=== PATIENT | male | born 1940 | race Caucasian/White ===

== ENCOUNTER 2021-11-22 06:13 | Day surgery (SDC) | payer MEDICARE ==
[~2021-11-22] VITALS: Ht 188 cm; Wt 100.2 kg
[~2021-11-22 06:13] MED LIST: Aspir 8181 MG PO; Omeprazole20 M1; SULI150 PO
[2021-11-22] MEDS ORDERED: DDAVP0.1 M1 PO (06:35)
--- NOTE | 2021-11-22 06:45 | NUR ---
11/22/21 0645 Emeka Johnson CALL LIGHT WITHIN REACH. TETRACAINE IN THE LEFT EYE AT 0640 PLEDGETT AT 0642
== END 2021-11-22 08:24 | disposition home or self-care (01) ==
LOC: ORSCSDS 06:13
PROVIDERS: Ophthalmology
PROC: 08RK3JZ Replacement of Left Lens with Synthetic Substitute, Percutaneous Approach (ICD-10-PCS; principal; 2021-11-22 07:30)
DX: H25.13 Age-related nuclear cataract, bilateral (principal); H52.202 Unspecified astigmatism, left eye; J44.9 Chronic obstructive pulmonary disease, unspecified; Z87.891 Personal history of nicotine dependence; Z79.82 Long term (current) use of aspirin; Z79.899 Other long term (current) drug therapy
CPT/HCPCS: J2001; J2250; J3010; J3301; J7040; V2632

== ENCOUNTER 2021-12-08 06:12 | Day surgery (SDC) | payer MEDICARE ==
[~2021-12-08] VITALS: Ht 193 cm; Wt 98.4 kg
[~2021-12-08 06:12] MED LIST changes: +DDAVP0.1 M1 PO
--- NOTE | 2021-12-08 06:31 | NUR ---
12/08/21 0631 Emeka Johnson CALL LIGHT WITHIN REACH. TETRACAINE IN THE RIGHT EYE AT 0631 AND PLEDGETT AT 0635
== END 2021-12-08 08:09 | disposition home or self-care (01) ==
LOC: ORSCSDS 06:12
PROVIDERS: Ophthalmology
PROC: 08RJ3JZ Replacement of Right Lens with Synthetic Substitute, Percutaneous Approach (ICD-10-PCS; principal; 2021-12-08 07:30)
DX: H25.11 Age-related nuclear cataract, right eye (principal); Z96.1 Presence of intraocular lens; K21.9 Gastro-esophageal reflux disease without esophagitis; I10 Essential (primary) hypertension; J44.9 Chronic obstructive pulmonary disease, unspecified; Z79.82 Long term (current) use of aspirin; Z79.899 Other long term (current) drug therapy
CPT/HCPCS: A9270; J2001; J2250; J3010; J3301; J7040; V2632

== ENCOUNTER 2022-06-07 12:55 | Emergency (ER) | payer MEDICARE ==
[~2022-06-07] VITALS: Ht 193 cm; Wt 90.7 kg
[~2022-06-07 12:55] MED LIST changes: +ATOR40TA PO; +Acetaminophen650 M1 PO; +CALCIUM CARBON500 M1 PO; +CLOP75 PO; -DDAVP0.1 M1 PO; +DESMOPRESSIN A0.2 M1 PO; +Hair, Skin & N1 EACH PO; +METO25ER PO; +NUBEQA300 MG PO; +OMEP20ER PO; +ORGOVYX120 MG PO; -Omeprazole20 M1; +Sulindac200 MG PO; +Vitamin D1000 UNI1 PO
[2022-06-07] MEDS ORDERED: Percocet 5-3251 EACH PO ×3 (14:35→14:41)
[2022-06-07] MEDS ORDERED: CYCL10 PO (14:35)
== END 2022-06-07 15:02 | disposition home or self-care (01) ==
LOC: ER 12:55
DX: M54.42 Lumbago with sciatica, left side (principal); M16.12 Unilateral primary osteoarthritis, left hip; C61 Malignant neoplasm of prostate; Z79.899 Other long term (current) drug therapy; Z87.891 Personal history of nicotine dependence
CPT/HCPCS: 73502; 96372; 99283-25; J1885

== ENCOUNTER 2022-08-07 09:31 | Emergency (ER) | payer MEDICARE ==
[~2022-08-07] VITALS: Ht 190.5 cm; Wt 95.2 kg
[~2022-08-07 09:31] MED LIST changes: +CYCL10 PO; +Percocet 5-3251 EACH PO
[2022-08-07 10:57] LABS: BASOPHILS ABSOLUTE AUTO 0.04 K/mm3 (0.00-0.23); BASOPHILS PERCENT AUTO 1 % (0-2); EOSINOPHILS ABSOLUTE AUTO 0.23 K/mm3 (0.00-0.68); EOSINOPHILS PERCENT AUTO 4 % (0-6); Hematocrit 34.9 % (37.0-53.0); Hemoglobin 11.3 g/dL (13.5-17.5); IMMATURE GRAN ABSOLUTE AUTO 0.02 K/mm3 (0.00-0.10); IMMATURE GRAN PERCENT AUTO 0 % (0-1); LYMPHOCYTES ABSOLUTE AUTO 0.46 K/mm3 (0.84-5.20); LYMPHOCYTES PERCENT AUTO 7 % (21-46); MONOCYTES ABSOLUTE AUTO 0.79 K/mm3 (0.16-1.47); MONOCYTES PERCENT AUTO 13 % (4-13); Mean Corpuscular HGB 29.5 pg (26.0-34.0); Mean Corpuscular HGB Conc 32.4 g/dL (31.5-36.5); Mean Corpuscular Volume 91 fL (80-100); Mean Platelet Volume 9.1 fL (9.1-12.4); NEUTROPHILS ABSOLUTE AUTO 4.64 K/mm3 (1.96-9.15); NEUTROPHILS PERCENT AUTO 75 % (41-73); Platelet Count 232 K/mm3 (150-400); RDW Coefficient Variation 12.7 % (11.7-14.2); RDW Standard Deviation 41.9 fL (35.1-46.3); Red Blood Cell Count 3.83 M/mm3 (4.30-5.90); White Blood Cell Count 6.18 K/mm3 (4.00-11.30)
[2022-08-07 11:20] LABS: Albumin, Blood 3.4 g/dL (3.4-5.0); Bilirubin, Total 0.5 mg/dL (0.1-1.0); Bun/Creatinine Ratio 36.3 (12.0-20.0); Creatinine, Blood 0.96 mg/dL (0.60-1.20); Globulin, Blood 3.4 g/dL (2.2-4.0); Potassium, Blood 4.1 mmol/L (3.5-5.5); Total Protein, Blood 6.8 g/dL (6.4-8.2)
[2022-08-07] MEDS ORDERED: HYDROCODONE-AC1 EAC7 PO (11:26)
[2022-08-07] MEDS ORDERED: NUBEQA300 MG PO (11:28)
[2022-08-07 12:08] LABS: Source, Urine Clean Catch
[2022-08-07 12:13] LABS: Bilirubin, Urine Neg (Neg); Blood, Urine Neg (Neg); Glucose Qualitative, Urine Neg (Neg); Ketones, Urine Neg (Neg); Leukocyte Esterase, Urine Neg (Neg); Nitrite, Urine Neg (Neg); Protein, Urine 2+ (Neg); Specific Gravity, Urine 1.025 (1.003-1.022); Urobilinogen, Urine NORM (Normal)
[2022-08-07 12:20] LABS: Appearance, Urine Hazy (Clear); Color, Urine Yellow (P-Yellow)
[2022-08-07 12:22] LABS: Amorphous Light (0-Heavy); Bacteria Not Seen /hpf; Red Blood Cells, Urine Not Seen /hpf (0-2); Squamous Epithelial Cells Few /hpf (Few); White Blood Cells, Urine Not Seen /hpf (0-5)
[2022-08-07 13:18] VITALS: BP 122/74
== END 2022-08-07 13:19 | disposition home or self-care (01) ==
LOC: ER 09:31
PROVIDERS: Physician Assistant
DX: T40.0X1A Poisoning by opium, accidental (unintentional), initial encounter (principal); R41.0 Disorientation, unspecified; Z79.899 Other long term (current) drug therapy; Z79.82 Long term (current) use of aspirin; K21.9 Gastro-esophageal reflux disease without esophagitis; M19.90 Unspecified osteoarthritis, unspecified site; Z87.891 Personal history of nicotine dependence
CPT/HCPCS: 36415; 70450; 80053; 81001; 82947; 85025; 93005; 93010; 99285-25